=== PATIENT | male | born 1945 | race Caucasian/White ===

== ENCOUNTER 2017-07-13 15:30 | Emergency (ER) | payer OTHER, MEDICARE ==
[~2017-07-13] VITALS: Ht 170.2 cm; Wt 92.5 kg
[2017-07-13 15:36] VITALS: TEMP 36.9; Ht 170.2 cm; Wt 92.5 kg
--- NOTE | 2017-07-13 16:35 | EMERGENCY ROOM VISIT NOTE ---
History First contact with patient: 16:19 Chief Complaint: TESTICULAR PAIN Stated Complaint: SWOLLEN LEFT TESTICLE,LOWER ABDOMINAL PAIN Nursing Triage Summary: left testicular pain , swelling and reddness History of Present Illness The patient is a 72 year old male who presents to the Emergency Room with complaints of increased left testicular pain and swelling. Patient states prior known history of bilateral inguinal hernias, no prior surgery. Patient states last week he had noticed one morning when he woke up there was a small amount of blood in his underwear. States as he has not seen that since, but has developed increasing pain and swelling to the left testicle close to where he previously had a hernia. Denies fevers chills, nausea vomiting. Patient states prior to this he would frequently do exercises and he feels this may have contributed to worsening hernia. Denies any pain or discomfort with urination. States he has not had a bowel movement since last week which is unusual for him. No other recent change medications or illness. Source of History: patient Onset: One week [employer] ) Position: other (Testicular ) Timing: worsening Associated Symptoms: No fevers, No chills, No nausea, No vomiting Note: Previous hernia Review of Systems See HPI for pertinent positives & negatives. A total of 10 systems reviewed and were otherwise negative. Past Medical/Surgical History Medical Problems: (1) Hernia Family History No pertinent family history secondary to age. Social History Smoking Status: Current Every Day Smoker Drug Use: none Housing Status: lives with family Current/Historical Medications Scheduled Aspirin (Aspirin), 81 MG PO DAILY Atorvastatin (Lipitor), 10 MG PO QPM Levofloxacin (Levaquin), 500 MG PO DAILY Metformin Hcl (Glucophage), 500 MG PO BID Physical Exam Vital Signs Date Time Temp Pulse Resp B/P (MAP) Pulse Ox O2 Delivery O2 Flow Rate FiO2 07/13/17 21:04 80 18 151/81 95 07/13/17 20:20 88 18 167/99 96 07/13/17 17:48 67 18 174/107 94 Room Air 07/13/17 15:36 36.9 79 16 176/82 98 Room Air Physical Exam GENERAL: alert, well appearing, well nourished, no distress, non-toxic EYE EXAM: normal conjunctiva, PERRL and EOM's grossly intact OROPHARYNX: no exudate, no erythema, lips, buccal mucosa, and tongue normal and mucous membranes are moist NECK: supple, no nuchal rigidity, no adenopathy, non-tender LUNGS: Clear to auscultation. Normal chest wall mechanics, diminished breath sounds bilaterally HEART: no murmurs, S1 normal and S2 normal ABDOMEN: abdomen soft, non-tender, normo-active bowel sounds, no masses, no rebound or guarding. : Circumcised, no discharge, mild left inguinal fullness and tenderness to palpation, left hemiscrotum enlargement, tenderness in the left hemiscrotum and left testicle with palpation, no rashes or sores, right testicle nontender to palpation and no palpable masses BACK: Back is symmetrical on inspection and there is no deformity, no midline tenderness, no CVA tenderness. SKIN: no rashes and no bruising UPPER EXTREMITIES: upper extremities are grossly normal. LOWER EXTREMITIES: No pitting edema. NEURO EXAM: Normal sensorium, cranial nerves II-XII grossly intact, normal speech, no gross weakness of arms, no gross weakness of legs. Gross sensation intact. Medical Decision & Procedures ER Provider Diagnostic Interpretation: CT ABD/PELVIS IV AND ORAL CONT CLINICAL HISTORY: Left inguinal pain and swelling. History of hernia. Constipation. COMPARISON STUDY: None. TECHNIQUE: Following the IV administration of 94 mL of Optiray-320, CT scan of the abdomen and pelvis was performed from the lung bases to the proximal femurs. Images are reviewed in the axial, sagittal, and coronal planes. IV contrast was administered without complication. A dose lowering technique was utilized adhering to the principles of ALARA. CT DOSE: 646.51 mGy.cm FINDINGS: Lower chest: The heart is normal in size and configuration, without pericardial effusion. The lung bases and pleural spaces are clear. Liver: The contrast-enhanced liver is normal in size, contour, and attenuation. There is no intrahepatic biliary ductal dilatation. The hepatic veins and portal veins are patent. Gallbladder: Unremarkable. Spleen: Normal in size and attenuation. Pancreas: There is apparent atrophy of the pancreatic body and tail. Adrenal glands: There is left adrenal gland thickening, likely representing hyperplasia Kidneys: There is a 13 mm right renal hypodensity, subjacent to an area of cortical scarring. This exceeds water attenuation and is therefore indeterminate. The 3 mm lower pole right renal hypodensity is too small to characterize but likely represents a cyst Bowel: There are no transition zones indicate bowel obstruction. The appendix appears normal. There is colonic diverticulosis. There is no acute diverticulitis. Peritoneum: There is no intraperitoneal free air or abdominal ascites. There is a tiny fat-containing umbilical hernia. No inguinal hernias are visualized. Vasculature: Atheromatous changes are present within the abdominal aorta. There is ectasia of the infrarenal abdominal aorta which measures 29 mm in maximal diameter. Adenopathy: None. Pelvic viscera: There is mild prostamegaly Skeletal structures: No destructive osseous lesions are seen. IMPRESSION: 1. No evidence of bowel obstruction. No evidence of free air 2. Normal appendix 3. Diverticulosis. No evidence of acute diverticulitis 4. Indeterminate 13 mm right renal hypodensity, subjacent to an area of cortical scarring 5. Ectasia of the infrarenal abdominal aorta which measures [address] evidence of a recurrent inguinal hernia Electronically signed by: Willis Weaver M.D. 07/13/2017 7:13 PM Dictated Date/Time: 07/13/2017 7:06 PM TESTICULAR ULTRASOUND CLINICAL HISTORY: Left testicular pain and swelling COMPARISON STUDY: No previous studies for comparison. FINDINGS: The right testis measures 4.1 x 2.2 x 3.2 cm. The left testis measures 4.2 x 2.9 x 2.8 cm. No intratesticular masses are visualized. There is a 7 mm right-sided epididymal cyst. There is no evidence of testicular torsion. There is a moderate left-sided hydrocele and small right-sided hydrocele. There is left epididymal hyperemia. There is equivocal slight left testicular hyperemia. IMPRESSION: 1. No evidence of intratesticular mass 2. No evidence of testicular torsion 3. Left epididymal hyperemia, consistent with epididymitis 4. Equivocal slight left testicular hyperemia. An early orchitis cannot be excluded 5. Moderate left-sided hydrocele Laboratory Results 07/13/17 16:52 Red Blood Count 5.72, Mean Corpuscular Volume 86.0, Mean Corpuscular Hemoglobin 29.2, Mean Corpuscular Hemoglobin Concent 33.9, Mean Platelet Volume 9.6, Neutrophils (%) (Auto) 66.6, Lymphocytes (%) (Auto) 22.9, Monocytes (%) (Auto) 9.8, Eosinophils (%) (Auto) 0.3, Basophils (%) (Auto) 0.2, Neutrophils # (Auto) 9.48, Lymphocytes # (Auto) 3.27, Monocytes # (Auto) 1.40, Eosinophils # (Auto) 0.04, Basophils # (Auto) 0.03 07/13/17 16:52 Test 07/13/17 16:52 07/13/17 16:58 07/13/17 18:13 White Blood Count 14.25 K/uL (4.8-10.8) Red Blood Count 5.72 M/uL (4.7-6.1) Hemoglobin 16.7 g/dL (14.0-18.0) Hematocrit 49.2 % (42-52) Mean Corpuscular Volume 86.0 fL (80-100) Mean Corpuscular Hemoglobin 29.2 pg (25-34) Mean Corpuscular Hemoglobin Concent 33.9 g/dl (32-36) Platelet Count 318 K/uL (130-400) Mean Platelet Volume 9.6 fL (7.4-10.4) Neutrophils (%) (Auto) 66.6 % Lymphocytes (%) (Auto) 22.9 % Monocytes (%) (Auto) 9.8 % Eosinophils (%) (Auto) 0.3 % Basophils (%) (Auto) 0.2 % Neutrophils # (Auto) 9.48 K/uL (1.4-6.5) Lymphocytes # (Auto) 3.27 K/uL (1.2-3.4) Monocytes # (Auto) 1.40 K/uL (0.11-0.59) Eosinophils # (Auto) 0.04 K/uL (0-0.5) Basophils # (Auto) 0.03 K/uL (0-0.2) RDW Standard Deviation 44.4 fL (36.4-46.3) RDW Coefficient of Variation 14.2 % (11.5-14.5) Immature Granulocyte % (Auto) 0.2 % Immature Granulocyte # (Auto) 0.03 K/uL (0.00-0.02) Prothrombin Time 10.0 SECONDS (9.0-12.0) Prothromb Time International Ratio 1.0 (0.9-1.1) Anion Gap 5.0 mmol/L (3-11) Est Creatinine Clear Calc Drug Dose 65.6 ml/min Estimated GFR () 76.2 Estimated GFR (Non- 65.7 BUN/Creatinine Ratio 7.5 (10-20) Calcium Level 9.4 mg/dl (8.5-10.1) Total Bilirubin 0.9 mg/dl (0.2-1) Aspartate Amino Transf (AST/SGOT) 14 U/L (15-37) Alanine Aminotransferase (ALT/SGPT) 17 U/L (12-78) Alkaline Phosphatase 80 U/L (45-117) Total Protein 8.6 gm/dl (6.4-8.2) Albumin 4.1 gm/dl (3.4-5.0) Globulin 4.5 gm/dl (2.5-4.0) Albumin/Globulin Ratio 0.9 (0.9-2) Lipase 74 U/L (73-393) Bedside Lactic Acid Venous 0.65 mmol/L (0.90-1.70) Urine Color YELLOW Urine Appearance CLEAR (CLEAR) Urine pH 7.0 (4.5-7.5) Urine Specific Todd 1.010 (1.000-1.030) Urine Protein NEG (NEG) Urine Glucose (UA) NEG (NEG) Urine Ketones NEG (NEG) Urine Occult Blood NEG (NEG) Urine Nitrite NEG (NEG) Urine Bilirubin NEG (NEG) Urine Urobilinogen NEG (NEG) Urine Leukocyte Esterase NEG (NEG) Medications Administered Medications (Trade) Dose Ordered Sig/Julio Cesar Route Start Time Stop Time Status Last Admin Dose Admin Levofloxacin (Levaquin Tab) 500 mg NOW STAT PO 07/13/17 20:52 07/13/17 20:53 DC 07/13/17 21:04 500 MG Procedure 2114: Updated patient on all results. Discussed all results at bedside and need for close follow-up with urology. Discussed supportive undergarments. Discussed use of antibiotics. Discussed symptoms to watch and return for, he verbalized understanding was agreeable with plan. ECG Indication: abdominal pain Rate (beats per minute): 64 Rhythm: normal sinus Findings: no acute ischemic change Medical Decision Differential diagnosis: Etiologies such as torsion, mass, infection, hernia, hydrocele, epididymitis, trauma, intra-abdominal process, as well as others were entertained Patient well-appearing here, no evidence of surgical emergency. Patient to be started on antibiotics and advised close follow-up with urology. Discussed with patient supportive undergarments, hydration, antibiotics, hydration. Encouraged tobacco cessation. Discussed monitoring for possible hernias given the location of pain. Vital signs stable throughout, patient tolerating by mouth and ambulatory with a steady gait. Pain controlled. Medication Reconcilliation Current Medication List: was personally reviewed by me Blood Pressure Screening Patient's blood pressure: Elevated blood pressure Blood pressure disposition: Elevated BP felt to be situational Impression Primary Impression: Hydrocele Additional Impression: Epididymitis Departure Information Dispostion Home / Self-Care Condition GOOD Prescriptions Levofloxacin (Levaquin) 500 Mg Tab 500 MG PO DAILY for 9 Days, TAB Prov: Teresa Holloway, 07/13/17 Referrals Brendon Clarke MD (PCP) Patient Instructions [facility] Additional Instructions Please follow up with urology. Please wear supportive undergarments, do not wear boxers. Please take the antibiotics as prescribed. Please drink plenty of water and consider taking a probiotic while you're on antibiotics. If you develop increased pain or swelling, notice blood in your urine, are unable to urinate, develop abdominal pain or back pain, fevers or chills, nausea or vomiting, or you've any other new concerns, please return the emergency room. Problem Qualifiers Primary Impression: Hydrocele Hydrocele type: unspecified Qualified Codes: N43.3 - Hydrocele, unspecified
[2017-07-13] MEDS ORDERED: ASPI1TAB83 PO (16:54)
[2017-07-13] MEDS ORDERED: GLC/500 PO (16:54)
[2017-07-13] MEDS ORDERED: ATOR10TA82 PO (16:56)
[2017-07-13 17:08] LABS: BASO % 0.2 %; BASO ABS # 0.03 K/uL (0-0.2); EOS % 0.3 %; EOS ABS # 0.04 K/uL (0-0.5); HEMATOCRIT 49.2 % (42-52); HEMOGLOBIN 16.7 g/dL (14.0-18.0); IG# 0.03 K/uL (0.00-0.02); LYMPH % 22.9 %; LYMPH ABS # 3.27 K/uL (1.2-3.4); MEAN CORPUSCULAR HEMOGLOBIN 29.2 pg (25-34); MEAN CORPUSCULAR HGB CONC 33.9 g/dl (32-36); MEAN PLATELET VOLUME 9.6 fL (7.4-10.4); MONO % 9.8 %; NEUT % 66.6 %; NEUT ABS # 9.48 K/uL (1.4-6.5); PLATELET COUNT 318 K/uL (130-400); RED CELL DISTRIBUTION WIDTH CV 14.2 % (11.5-14.5); RED CELL DISTRIBUTION WIDTH SD 44.4 fL (36.4-46.3); WHITE BLOOD COUNT 14.25 K/uL (4.8-10.8)
[2017-07-13 17:24] LABS: ALBUMIN 4.1 gm/dl (3.4-5.0); CALCIUM 9.4 mg/dl (8.5-10.1); CREATININE 1.12 mg/dl (0.60-1.40); POTASSIUM 3.8 mmol/L (3.5-5.1)
[2017-07-13 17:27] LABS: TOTAL PROTEIN 8.6 gm/dl (6.4-8.2)
[2017-07-13] MEDS ORDERED: OPTIRAY 320 IV PRN (18:45)
--- NOTE | 2017-07-13 19:14 | DIAGNOSTIC IMAGING REPORT ---
CT ABD/PELVIS IV AND ORAL CONT CLINICAL HISTORY: Left inguinal pain and swelling. History of hernia. Constipation. COMPARISON STUDY: None. TECHNIQUE: Following the IV administration of 94 mL of Optiray-320, CT scan of the abdomen and pelvis was performed from the lung bases to the proximal femurs. Images are reviewed in the axial, sagittal, and coronal planes. IV contrast was administered without complication. A dose lowering technique was utilized adhering to the principles of ALARA. CT DOSE: 646.51 mGy.cm FINDINGS: Lower chest: The heart is normal in size and configuration, without pericardial effusion. The lung bases and pleural spaces are clear. Liver: The contrast-enhanced liver is normal in size, contour, and attenuation. There is no intrahepatic biliary ductal dilatation. The hepatic veins and portal veins are patent. Gallbladder: Unremarkable. Spleen: Normal in size and attenuation. Pancreas: There is apparent atrophy of the pancreatic body and tail. Adrenal glands: There is left adrenal gland thickening, likely representing hyperplasia Kidneys: There is a 13 mm right renal hypodensity, subjacent to an area of cortical scarring. This exceeds water attenuation and is therefore indeterminate. The 3 mm lower pole right renal hypodensity is too small to characterize but likely represents a cyst Bowel: There are no transition zones indicate bowel obstruction. The appendix appears normal. There is colonic diverticulosis. There is no acute diverticulitis. Peritoneum: There is no intraperitoneal free air or abdominal ascites. There is a tiny fat-containing umbilical hernia. No inguinal hernias are visualized. Vasculature: Atheromatous changes are present within the abdominal aorta. There is ectasia of the infrarenal abdominal aorta which measures 29 mm in maximal diameter. Adenopathy: None. Pelvic viscera: There is mild prostamegaly Skeletal structures: No destructive osseous lesions are seen. IMPRESSION: 1. No evidence of bowel obstruction. No evidence of free air 2. Normal appendix 3. Diverticulosis. No evidence of acute diverticulitis 4. Indeterminate 13 mm right renal hypodensity, subjacent to an area of cortical scarring 5. Ectasia of the infrarenal abdominal aorta which measures [address] evidence of a recurrent inguinal hernia Electronically signed by: Willis Weaver M.D. 07/13/2017 7:13 PM Dictated Date/Time: 07/13/2017 7:06 PM
--- NOTE | 2017-07-13 20:23 | DIAGNOSTIC IMAGING REPORT ---
TESTICULAR ULTRASOUND CLINICAL HISTORY: Left testicular pain and swelling COMPARISON STUDY: No previous studies for comparison. FINDINGS: The right testis measures 4.1 x 2.2 x 3.2 cm. The left testis measures 4.2 x 2.9 x 2.8 cm. No intratesticular masses are visualized. There is a 7 mm right-sided epididymal cyst. There is no evidence of testicular torsion. There is a moderate left-sided hydrocele and small right-sided hydrocele. There is left epididymal hyperemia. There is equivocal slight left testicular hyperemia. IMPRESSION: 1. No evidence of intratesticular mass 2. No evidence of testicular torsion 3. Left epididymal hyperemia, consistent with epididymitis 4. Equivocal slight left testicular hyperemia. An early orchitis cannot be excluded 5. Moderate left-sided hydrocele Electronically signed by: Willis Weaver M.D. 07/13/2017 8:21 PM Dictated Date/Time: 07/13/2017 8:19 PM
[2017-07-13] MEDS ORDERED: LEVOFLOXACIN 250 MG TAB PO STA (20:52)
[2017-07-13] MEDS ORDERED: LEVO-366 PO (20:58)
[2017-07-13 21:04] VITALS: BP 151/81; PULSE 80; O2SAT 95
== END 2017-07-13 21:05 | disposition home or self-care (01) ==
LOC: C.EDB 15:32 → C.EDC 21:05
DX: N43.3 Hydrocele, unspecified (principal); N45.1 Epididymitis; F17.200 Nicotine dependence, unspecified, uncomplicated; Z79.82 Long term (current) use of aspirin; Z79.84 Long term (current) use of oral hypoglycemic drugs; Z79.899 Other long term (current) drug therapy